=== PATIENT | female | born 1970 | race Caucasian/White ===

== ENCOUNTER 2021-06-22 14:16 | Emergency (ER) | payer OTHER, MEDICAID ==
[~2021-06-22] VITALS: Ht 175.3 cm; Wt 88.9 kg
[2021-06-22 14:51] LABS: ABSOLUTE BASOPHILS 0.1 thou/uL (0.0-0.2); ABSOLUTE EOSINOPHILS 0.3 thou/uL (0.0-0.7); ABSOLUTE LYMPHOCYTES 2.4 thou/uL (0.8-5.3); ABSOLUTE MONOCYTES 0.5 thou/uL (0.0-1.2); ABSOLUTE NEUTROPHILS 4.4 thou/uL (1.6-8.1); BASOPHILS 1.1 %; EOSINOPHILS 3.3 %; HEMATOCRIT 41.8 % (37.0-47.0); LYMPHOCYTES 31.2 %; MCH 29.9 pg (26.0-34.0); MCHC 33.6 g/dL (28.0-37.0); MONOCYTES 6.4 %; MPV 7.6 fl. (7.2-11.1); NUCLEATED RBCS 0 /100WBC; PLATELET COUNT* 308 thou/uL (150-400); RBC 4.69 mil/uL (4.20-5.00); RDW-CV 14.3 % (10.5-14.5); WBC 7.6 thou/uL (4.0-11.0)
[2021-06-22 14:55] LABS: URINE BLOOD TRACE (Negative); URINE CLARITY CLEAR; URINE COLOR YELLOW; URINE GLUCOSE-RANDOM NEGATIVE (Negative); URINE KETONES NEGATIVE (Negative); URINE LEUKOCYTES-REFLEX NEGATIVE (Negative); URINE NITRITE-REFLEX NEGATIVE (Negative); URINE PROTEIN NEGATIVE (Negative); URINE UROBILINOGEN 0.2 E.U./dl (0.2-1.0)
[2021-06-22 14:58] LABS: AMP/METHAMP POSITIVE (Negative); BARBITURATES Negative (Negative); BENZODIAZEPINES Negative (Negative); COCAINE Negative (Negative); METHADONE Negative (Negative); OPIATES Negative (Negative); PCP Negative (Negative); THC Negative (Negative)
[2021-06-22 14:59] LABS: URINE BILIRUBIN 1+ (Negative)
[2021-06-22 15:00] LABS: ICTOTEST (BILI CONFIRMATORY) Negative (Negative)
[2021-06-22 15:00] LABS: CALCIUM 8.5 mg/dL (8.5-10.1); POTASSIUM 3.2 mmol/L (3.5-5.1)
[2021-06-22 15:07] LABS: ALCOHOL < 10 mg/dL (<10); SALICYLATE 2.9 mg/dL (2.8-20.0)
[2021-06-22 15:09] LABS: ACETAMINOPHEN < 2 ug/mL (10-30); ALBUMIN 3.4 g/dL (3.4-5.0); TOTAL BILIRUBIN 0.6 mg/dL (<0.1-1.0); TOTAL PROTEIN 7.1 g/dL (6.4-8.2)
[2021-06-22 16:41] VITALS: BP 120/79
== END 2021-06-22 17:00 | disposition home or self-care (01) ==
LOC: M.ERS 14:16
PROVIDERS: Emergency Medicine Emergency Medical Services
DX: F32.9 Major depressive disorder, single episode, unspecified (principal); Z88.6 Allergy status to analgesic agent; Z88.2 Allergy status to sulfonamides